=== PATIENT | male | born 1940 | race Caucasian/White ===

== ENCOUNTER 2019-05-11 13:22 | Inpatient (IN) ==
[2019-05-11] MEDS ORDERED: 0.9 % Sodium Chloride 1,000 ML IVC ONE (13:32)
--- NOTE | 2019-05-11 13:36 | Emergency Department Note ---
Disposition Clinical Impression: Syncope and collapse Disposition: Admitted As Inpatient Condition: Good [facility] Care Provider[facility] - Forms: ED Satisfaction Letter Time of Disposition: 14:44 General Adult HPI - General Chief complaint: ED Syncope Stated complaint: weakness Time Seen by Provider: 05/11/19 13:25 Source: patient, EMS Mode of arrival: EMS Limitations: no limitations Nursing Notes Reviewed: Yes Vital Signs Reviewed: Yes - History of Present Illness HPI Narrative: Patient is a 79-year-old male who is presenting via EMS following a syncopal episode. Patient with known history of diabetes, controlled with diet. Patient states that just prior to arrival, he was having his ears flushed at the OR hospital, during this time he became lightheaded dizzy and surprised, states this lasted only for a few seconds and regained baseline following this. Per EMS report, following a syncopal episode, patient had some slurring of speech, and facial droop, per EMS patient attended they arrived that all resolved and he did not have a specific side per [facility] report. Discussion with the patient he currently states that he is at baseline, does not remember having a facial droop, he does have slowed speech but denies any change in his speech at this time. Patient denies hitting his head, any recent trauma or head injury. He denies any chest pain, shortness of breath, abdominal pain, nausea or vomiting. He denies any urinary symptoms. Pain Scale: 0 - Related Data Home Medications Medication Instructions Recorded Confirmed Aspirin [Lo-Dose Aspirin EC] 81 mg PO DAILY 03/13/19 03/27/19 Atenolol [Tenormin] 50 mg PO DAILY 03/13/19 03/27/19 Carbidopa/Levodopa 2 each PO TID 03/13/19 03/27/19 [Carbidopa-Levodopa 25-100 Tab] Cetirizine HCl [24Hour Allergy] 10 mg PO DAILY 03/13/19 03/27/19 Loperamide [Imodium] 2 mg PO Q6H PRN 03/13/19 03/27/19 Mirabegron [Myrbetriq] 25 mg PO DAILY 03/13/19 03/27/19 Oxybutynin Chloride [Ditropan XL] 10 mg PO DAILY 03/13/19 03/27/19 Potassium Chloride [K-Tab ER] 8 meq PO BID 03/13/19 03/27/19 Simvastatin [Zocor] 10 mg PO DAILY 03/13/19 03/27/19 Tamsulosin [Flomax] 0.4 mg PO DAILY 03/13/19 03/27/19 hydroCHLOROthiazide 12.5 mg PO DAILY 03/13/19 03/27/19 [Hydrochlorothiazide] Allergies Allergy/AdvReac Type Severity Reaction Status Date / Time No Known Allergies Allergy Verified 03/13/19 07:23 All systems ED: reviewed and negative except as stated. Review of Systems: As Per HPI Constitutional: Denies: fever, chills ENT ED: Denies: congestion Cardiovascular: Denies: chest pain, palpitations, edema Respiratory: Denies: cough Gastrointestinal: Denies: abdominal pain, nausea, vomiting Genitourinary: Denies: dysuria Integumentary: Denies: rash Neurological: Reports: weakness. Denies: headache, numbness, paresthesias, confusion Endocrine: Denies: fatigue Past Medical History - Past Medical History Medical history: Reports: dementia, diabetes, hyperlipidemia, hypertension Surgical history: Reports: cholecystectomy, herniorrhaphy Psychiatric history: Reports: no psych history - Social History Smoking Status: Never smoker Smokeless Tobacco Status: No Alcohol use: Reports: none Drug use: Reports: none Physical Exam - General Limitations: no limitations General appearance: alert, in no apparent distress - Head Head exam: atraumatic, normocephalic, normal inspection - Eye Eye exam: Present: normal appearance, PERRL, EOMI - ENT ENT exam: normal exam, normal oropharynx, mucous membranes moist - Neck Neck exam: Present: normal inspection, full ROM, trachea midline - Chest Chest inspection: Present: normal inspection, symmetric chest wall rise - Respiratory Respiratory exam: Present: normal lung sounds bilaterally - Cardiovascular Cardiovascular exam: Present: regular rate, normal rhythm, normal heart sounds - Abdominal Exam Abdominal exam: Present: soft, Non-Tender. Absent: tenderness, distention, guarding, rebound, rigidity - Extremities Exam Extremities exam: Present: normal inspection, full ROM. Absent: tenderness, pedal edema - Expanded Lower Extremity Exam Neurovascular/Tendon exam: Absent: motor deficit, sensory deficit, tendon deficit - Back Exam Back exam: Present: normal inspection, full ROM. Absent: tenderness - Neurological Exam Neurological exam: Present: alert, oriented X3 - Expanded Neurological Exam Patient oriented to: Present: person, place, time Speech: Present: fluid speech Cranial nerves: EOM function (II, III, IV, ): Normal, facial sensation (V): Normal, facial palsy (VII): Normal, spinal accessory function (XI): Normal, tongue deviation (XII): Normal Cerebellar function: finger to nose: Normal Motor strength - LUE: 5/5 Motor strength - RUE: 5/5 Motor strength - LLE: 5/5 Motor strength - RLE: 5/5 Upper motor neuron exam: gosia neglect: Absent bilaterally, pronator drift: Absent bilaterally Sensory exam upper extremity: light touch: Normal Sensory exam lower extremity: light touch: Normal Coma Scale Eye Opening: Spontaneous Coma Scale Motor Response: Obeys Commands Coma Scale Verbal Response: Oriented Coma Scale Total: 15 - Psychiatric Psychiatric exam: Present: normal affect, normal mood - Skin Skin exam: Present: warm Course Vital Signs Temperature 97.6 F 05/11/19 13:28 Pulse Rate 76 05/11/19 13:28 Respiratory Rate 16 05/11/19 13:28 Blood Pressure 152/71 05/11/19 13:28 O2 Sat by Pulse Oximetry 98 05/11/19 13:28 Temperature 97.6 F 05/11/19 13:28 Pulse Rate 76 05/11/19 13:28 Respiratory Rate 16 05/11/19 13:28 Blood Pressure 152/71 05/11/19 13:28 O2 Sat by Pulse Oximetry 98 05/11/19 13:28 Oxygen Delivery Oxygen Delivery Room Air Medical Decision Making - MDM Narrative Medical decision making narrative: Patient is a 79-year-old male who is presenting with syncope. Patient was at the OR, had his ears flushed, with syncope. Following syncope there was neurological changes. Upon EMSs were arrival, he was NIH of 0. Glucose on arrival here is in the 100s. On arrival to our ER, patient is alert and oriented 3, no acute distress, GCS of 15, NIH of 0. He does have slowed speech but does not appear to be slurred. No acute neurological or vascular abnormality's at this time. Given concern for possible TIA versus CVA, versus cardiac/ pulmonary etiology. CBC, BMP, troponin and EKG are performed and show no acute abdomen amount he. CT of the head was performed as well as chest x-ray showing no acute intracranial or intra-cardio or pulmonary changes. Event that the patient did have a syncopal event with concerning neurological changes, although resolved at this time, patient will be admitted for further observation and further evaluation. On reevaluation at 1430, patient remains in NIH of 0 with no further neurological changes. Patient again feels though he remained baseline. - Medical Records Medical records reviewed: Yes I reviewed the patient's medical records. - Lab Data Lab results reviewed: Yes I reviewed the patient's lab results. Result diagrams: 05/11/19 13:45 05/11/19 13:45 Lab Results 05/11/19 05/11/19 05/11/19 Range/Units 13:45 13:45 13:45 WBC 6.8 (4.3-11.1) K/mcL RBC 4.55 (4.19-5.50) M/mcL Hgb 14.3 (12.9-16.9) g/dL Hct 42.7 (37.5-50.1) % MCV 93.8 (83.0-100.0) fL MCH 31.4 (28.0-33.3) pg MCHC 33.5 (31.6-35.5) g/dL RDW 13.5 (11.5-14.5) % Plt Count 205 (140-400) K/mcL MPV 11.3 (9.4-12.4) fL Immature Gran % 0.1 (0-4) % Seg Neutrophils % 68.9 % Lymphocytes % 18.9 % Monocytes % 10.8 % Eosinophils % 1.0 % Basophils % 0.3 % Neutrophils # 4.7 (1.6-8.9) K/mcL Lymphocytes # 1.3 (0.6-4.6) K/mcL Monocytes # 0.7 (0.0-1.3) K/mcL Eosinophils # 0.1 (0.0-0.6) K/mcL Basophils # 0.0 (0.0-0.2) K/mcL PT 12.6 H (9.4-12.1) Seconds INR 1.1 APTT 30.9 (26.0-36.0) Seconds Sodium 143 (136-145) mEq/L Potassium 3.9 (3.5-5.1) mEq/L Chloride 109 H (98-107) mEq/L Carbon Dioxide 27 (23-29) mEq/L BUN 19 (8-23) mg/dL Creatinine 0.92 (0.70-1.30) mg/dL Est GFR ( Amer) > 60 (> 60) Est GFR (Non-Af Amer) > 60 (> 60) BUN/Creatinine Ratio 21 (6-26) Glucose 105 (70-105) mg/dL Calculated Osmolality 299 (280-300) Calcium 9.2 (8.6-10.3) mg/dL Total Bilirubin 0.5 (0.3-1.0) mg/dL Direct Bilirubin 0.1 (0.0-0.2) mg/dL Indirect Bilirubin 0.4 (0.0-1.2) mg/dL AST 17 (13-39) Units/L ALT 24 (7-52) Units/L Alkaline Phosphatase 80 (34-104) Units/L Troponin I < 0.03 (< 0.04) ng/mL Serum Total Protein 6.9 (6.4-8.9) g/dL Albumin 4.0 (3.5-5.7) g/dL Globulin 2.9 (2.4-3.5) g/dL Albumin/Globulin Ratio 1.4 (1.1-2.2) TSH (0.340-5.600) mcIU/mL 05/11/19 Range/Units 13:45 WBC (4.3-11.1) K/mcL RBC (4.19-5.50) M/mcL Hgb (12.9-16.9) g/dL Hct (37.5-50.1) % MCV (83.0-100.0) fL MCH (28.0-33.3) pg MCHC (31.6-35.5) g/dL RDW (11.5-14.5) % Plt Count (140-400) K/mcL MPV (9.4-12.4) fL Immature Gran % (0-4) % Seg Neutrophils % % Lymphocytes % % Monocytes % % Eosinophils % % Basophils % % Neutrophils # (1.6-8.9) K/mcL Lymphocytes # (0.6-4.6) K/mcL Monocytes # (0.0-1.3) K/mcL Eosinophils # (0.0-0.6) K/mcL Basophils # (0.0-0.2) K/mcL PT (9.4-12.1) Seconds INR APTT (26.0-36.0) Seconds Sodium (136-145) mEq/L Potassium (3.5-5.1) mEq/L Chloride (98-107) mEq/L Carbon Dioxide (23-29) mEq/L BUN (8-23) mg/dL Creatinine (0.70-1.30) mg/dL Est GFR ( Amer) (> 60) Est GFR (Non-Af Amer) (> 60) BUN/Creatinine Ratio (6-26) Glucose (70-105) mg/dL Calculated Osmolality (280-300) Calcium (8.6-10.3) mg/dL Total Bilirubin (0.3-1.0) mg/dL Direct Bilirubin (0.0-0.2) mg/dL Indirect Bilirubin (0.0-1.2) mg/dL AST (13-39) Units/L ALT (7-52) Units/L Alkaline Phosphatase (34-104) Units/L Troponin I (< 0.04) ng/mL Serum Total Protein (6.4-8.9) g/dL Albumin (3.5-5.7) g/dL Globulin (2.4-3.5) g/dL Albumin/Globulin Ratio (1.1-2.2) TSH 3.482 (0.340-5.600) mcIU/mL - Radiology Data Radiology results reviewed: Yes I reviewed the patient's radiology results. Chest X-Ray 05/11/19 13:34 IMPRESSION: No acute cardiopulmonary disease D/ / Surendra Wu MD / Surendra Wu MD Interpreting Provider: Surendra Wu MD Head CT 05/11/19 13:35 IMPRESSION: Stable appearance of the brain with no acute intracranial abnormality. D/ / Ra Mckeon MD / Ra Mckeon MD Interpreting Provider: Ra Mckeon MD - EKG Data EKG #1 EKG attestation: Yes I reviewed and interpreted this EKG. EKG results narrative: EKG performed at ventricular rate of 82, regular rhythm, normal axis, no segment elevation, depression, no WPW, Brugada, no epsilon wave, no QT prolongation. NIH Stroke Scale - Level of Consciousness LOC: Alert - LOC Questions LOC Questions: Answers both correctly - LOC Commands LOC Commands: Performs both correctly - Best Gaze Best Gaze: Normal - Visual Visual: No visual loss - Facial Palsy Facial Palsy: Normal - Motor Arms Motor Arm-Left: No drift for 10 seconds Motor Arm-Right: No drift for 10 seconds - Motor Legs Motor Leg-Left: No drift for 5 seconds Motor Leg-Right: No drift for 5 seconds - Limb Ataxia Limb Ataxia: Absent of affected limb too weak to perform exam - Sensory Sensory: Normal - Best Language Best Language: No aphasia - Dysarthria Dysarthria: Normal - Extinction and Inattention Extinction and Inattention: Normal - NIHSS Total Score NIHSS Total Score: 0
--- NOTE | 2019-05-11 13:51 | Emergency Department Note ---
Disposition Clinical Impression: Syncope and collapse Disposition: Admitted As Inpatient Forms: ED Satisfaction Letter Time of Disposition: 13:51 General Adult HPI - General Chief complaint: ED Syncope Stated complaint: weakness Time Seen by Provider: 05/11/19 13:25 Source: patient, EMS Limitations: no limitations Nursing Notes Reviewed: Yes Vital Signs Reviewed: Yes - History of Present Illness HPI Narrative: ED attending attestation note: I examined this patient and my medical decision-making was reviewed with the emergency medicine resident SERINA MONTANO. I agree with the documented findings, disposition and treatment plan as described except to the extent set forth below. For any procedures performed I was present for the critical portions, and for any EKGs performed and reviewed I have looked over the EKG and interpretations and discussed with provider Briefly: 79-year-old [facility] for syncope and history of facial droop. Patient is getting his ears irrigated and then he had a syncopal episode they noticed facial droop patient is NIH of 0 upon arrival at [facility] emergency department is awake and alert is no weakness. Patient will get syncope workup and a TPA workup will get a head CT screening labs EKG and chest x-ray admission anticipated. Disposition pending Pain Scale: 0 - Related Data Home Medications Medication Instructions Recorded Confirmed Aspirin [Lo-Dose Aspirin EC] 81 mg PO DAILY 03/13/19 03/27/19 Atenolol [Tenormin] 50 mg PO DAILY 03/13/19 03/27/19 Carbidopa/Levodopa 2 each PO TID 03/13/19 03/27/19 [Carbidopa-Levodopa 25-100 Tab] Cetirizine HCl [24Hour Allergy] 10 mg PO DAILY 03/13/19 03/27/19 Loperamide [Imodium] 2 mg PO Q6H PRN 03/13/19 03/27/19 Mirabegron [Myrbetriq] 25 mg PO DAILY 03/13/19 03/27/19 Oxybutynin Chloride [Ditropan XL] 10 mg PO DAILY 03/13/19 03/27/19 Potassium Chloride [K-Tab ER] 8 meq PO BID 03/13/19 03/27/19 Simvastatin [Zocor] 10 mg PO DAILY 03/13/19 03/27/19 Tamsulosin [Flomax] 0.4 mg PO DAILY 03/13/19 03/27/19 hydroCHLOROthiazide 12.5 mg PO DAILY 03/13/19 03/27/19 [Hydrochlorothiazide] Allergies Allergy/AdvReac Type Severity Reaction Status Date / Time No Known Allergies Allergy Verified 03/13/19 07:23 Past Medical History - Past Medical History Medical history: Reports: dementia, diabetes, hyperlipidemia, hypertension Surgical history: Reports: cholecystectomy, herniorrhaphy Psychiatric history: Reports: no psych history - Social History Smoking Status: Never smoker Smokeless Tobacco Status: No Alcohol use: Reports: none Drug use: Reports: none Physical Exam - General Limitations: no limitations General appearance: alert, in no apparent distress Course Vital Signs Temperature 97.6 F 05/11/19 13:28 Pulse Rate 76 05/11/19 13:28 Respiratory Rate 16 05/11/19 13:28 Blood Pressure 152/71 05/11/19 13:28 O2 Sat by Pulse Oximetry 98 05/11/19 13:28 Temperature 97.6 F 05/11/19 13:28 Pulse Rate 76 05/11/19 13:28 Respiratory Rate 16 05/11/19 13:28 Blood Pressure 152/71 05/11/19 13:28 O2 Sat by Pulse Oximetry 98 05/11/19 13:28 Oxygen Delivery Oxygen Delivery Room Air
[2019-05-11 14:08] LABS: Basophils % 0.3 %; Eosinophils # 0.1 K/mcL (0.0-0.6); Hematocrit 42.7 % (37.5-50.1); Hemoglobin 14.3 g/dL (12.9-16.9); Immature Granulocytes % 0.1 % (0-4); Lymphocytes # 1.3 K/mcL (0.6-4.6); Lymphocytes % 18.9 %; Mean Corpuscular HGB Conc 33.5 g/dL (31.6-35.5); Mean Corpuscular Hemoglobin 31.4 pg (28.0-33.3); Mean Corpuscular Volume 93.8 fL (83.0-100.0); Mean Platelet Volume 11.3 fL (9.4-12.4); Monocytes # 0.7 K/mcL (0.0-1.3); Monocytes % 10.8 %; Neutrophils # 4.7 K/mcL (1.6-8.9); Platelet Count 205 K/mcL (140-400); Red Blood Count 4.55 M/mcL (4.19-5.50); Red Cell Distribution Width 13.5 % (11.5-14.5); Segmented Neutrophils % 68.9 %; White Blood Count 6.8 K/mcL (4.3-11.1)
[2019-05-11 14:14] LABS: INR 1.1; Prothrombin Time 12.6 Seconds (9.4-12.1)
[2019-05-11 14:17] LABS: Activated Partial Thrombo Time 30.9 Seconds (26.0-36.0)
[2019-05-11 14:26] LABS: Alanine Aminotransferase 24 Units/L (7-52); Albumin/Globulin Ratio 1.4 (1.1-2.2); Alkaline Phosphatase 80 Units/L (34-104); Aspartate Amino Transferase 17 Units/L (13-39); BUN/Creatinine Ratio 21 (6-26); Bilirubin,Direct 0.1 mg/dL (0.0-0.2); Bilirubin,Indirect 0.4 mg/dL (0.0-1.2); Bilirubin,Total 0.5 mg/dL (0.3-1.0); Blood Urea Nitrogen 19 mg/dL (8-23); Calcium 9.2 mg/dL (8.6-10.3); Carbon Dioxide 27 mEq/L (23-29); Chloride 109 mEq/L (98-107); Globulin 2.9 g/dL (2.4-3.5); Glucose 105 mg/dL (70-105); Osmolality,Calculated 299 (280-300); Potassium 3.9 mEq/L (3.5-5.1); Sodium 143 mEq/L (136-145); Total Protein 6.9 g/dL (6.4-8.9); Troponin I < 0.03 ng/mL (< 0.04); eGFR For African Americans > 60 (> 60); eGFR For Non-African Americans > 60 (> 60)
[2019-05-11 15:16] LABS: Bilirubin,Urine Negative (Negative); Blood,Urine Negative (Negative); Clarity,Urine Clear (Clear); Color,Urine Yellow (Yellow); Glucose,Urine (UA) Normal (Normal); Ketones,Urine Trace mg/dL (Negative); Leukocyte Esterase,Urine Negative (Negative); Nitrite,Urine Negative (Negative); PH,Urine 5.5 pH Units (5.0-8.0); Protein,Urine Negative (Neg-Trace); Specific Gravity,Urine 1.028 (1.010-1.025); Urobilinogen,Urine Normal (Normal)
[2019-05-11] MEDS ORDERED: Naloxone 0.4 MG/ML INJ IVP PRN (15:20)
[2019-05-11] MEDS ORDERED: Ondansetron 4 MG/2 ML VIAL IVP PRN (15:20)
--- NOTE | 2019-05-11 15:35 | Internal Med History&Physical ---
Date of Encounter: 05/11/19 Time of Encounter: 15:00 Internal Medicine - H&P: HPI Chief complaint: syncope ?facial droop Admitted From: Emergency Dept History of present illness: Mr. Cardenas is a 79 year old male with history of hypertension, HLD, prediabetes, Parkinson's disease, BPH, who presented to the ED from [place] after an episode of syncope. He was at the [facility] around 1130am today to have his ear wax removed when he had sudden onset of LOC. Lasted a few seconds and he quickly regained his consciousness without any intervention. No HI or fall. However, after the event, the staff noted that he had facial droop (unsure which side) an d ?slurring of speech hence decided to send the pt to the ED for further evaluation. When asked specifically about the event, patient has no recollection after the ear wax irrigation. Denies any prodromal symptoms including chest pain, palpitation, lightheadedness, or blurring of vision. No seizure-like activities noted. No loss of bowel/bladder control or tongue biting. No similar episodes in the past. Upon the arrival at the ED, his symptoms resolved with NIH of 0 hence stroke alert was canceled. Otherwise, he was afebrile and hemodynamically stable. Workup including CBC, CMP, troponin, chest x-ray, urinalysis, and CT head were all unremarkable. EKG showed normal sinus rhythm without ST-T changes concerning for ischemia. He will be admitted for further management. Past Med Surg Social Fam HX - Past Medical History Medical history: dementia, hyperlipidemia, hypertension Additional medical history: pre-DM (A1c 6.1 02/2019). hypokalemia. parkinsons. dementia Psychiatric history: no psych history - Past Surgical History Surgical History: cholecystectomy, herniorrhaphy - Social History Smoking Status: Never smoker Smokeless Tobacco Status: No Alcohol use: none Drug use: none - Additional Family History Additional family history: No family history of CAD or CVA Internal Medicine - H&P: Meds Aspirin [Lo-Dose Aspirin EC] 162 mg PO DAILY 03/13/19 [History] Atenolol [Tenormin] 50 mg PO DAILY 03/13/19 [History] Carbidopa/Levodopa [Carbidopa-Levodopa 25-100 Tab] 2 each PO TID 03/13/19 [History] Loperamide [Imodium] 2 mg PO Q6H PRN 03/13/19 [History] Mirabegron [Myrbetriq] 25 mg PO DAILY 03/13/19 [History] Oxybutynin Chloride [Ditropan XL] 10 mg PO DAILY 03/13/19 [History] Tamsulosin [Flomax] 0.4 mg PO HS 03/13/19 [History] hydroCHLOROthiazide [Hydrochlorothiazide] 12.5 mg PO DAILY 03/13/19 [History] Calcium Carbonate [Calcium] 600 mg PO BID 05/11/19 [History] Cholecalciferol (D-3) [Vitamin D] 2,000 unit PO DAILY 05/11/19 [History] Potassium Chloride [Klor-Con 10] 10 meq PO BID 05/11/19 [History] Simvastatin [Zocor] 20 mg PO HS 05/11/19 [History] Allergy/AdvReac Type Severity Reaction Status Date / Time No Known Allergies Allergy Verified 03/13/19 07:23 All Systems PM: A 10-system review of systems was performed and is negative for pertinent find ings except as documented above in the HPI. - Constitutional Vitals: Temp Pulse Resp BP Pulse Ox 97.6 F 76 16 152/71 98 05/11/19 13:28 05/11/19 13:28 05/11/19 13:28 05/11/19 13:28 05/11/19 13:28 Exam: General: Alert and oriented, not in acute distress. HEENT:EOMI, pupils equal, round and reactive. Cardiovascular:Normal S1 & S2, No JVD. Pulse regular. Lungs: clear to auscultation, no wheezes/rales Abdomen:Soft, non-tender, no rigidity. Extremities:No deformity or swelling Neurological: Although speech is slow (?from Parkinson's disease), no obvious slurring of speech noted. CN II-XII intact, unable to appreciate facial droop at this point. Power and sensation fully intact in all 4 limbs. No cerebellar signs, pronator drift -ve, Babinski downgoing bilaterally Skin:Normal color, no rash, no lesions. Pulses:Carotid and radial pulses normal +2. Rest of the physical exam is non contributory Internal Med - H&P Results - Labs CBC & Chem 7: 05/11/19 13:45 05/11/19 13:45 Labs: Short CBC 05/11/19 Range/Units 13:45 WBC 6.8 (4.3-11.1) K/mcL Hgb 14.3 (12.9-16.9) g/dL Hct 42.7 (37.5-50.1) % Plt Count 205 (140-400) K/mcL Neutrophils # 4.7 (1.6-8.9) K/mcL BMP 05/11/19 13:45 Sodium 143 Potassium 3.9 Chloride 109 H Carbon Dioxide 27 BUN 19 Creatinine 0.92 Glucose 105 Calcium 9.2 Cardiac Enzymes 05/11/19 Range/Units 13:45 Troponin I < 0.03 (< 0.04) ng/mL Liver Function 05/11/19 Range/Units 13:45 Total Bilirubin 0.5 (0.3-1.0) mg/dL Direct Bilirubin 0.1 (0.0-0.2) mg/dL AST 17 (13-39) Units/L ALT 24 (7-52) Units/L Alkaline Phosphatase 80 (34-104) Units/L Albumin 4.0 (3.5-5.7) g/dL Urine 05/11/19 Range/Units 14:52 Urine Color Yellow (Yellow) Urine Clarity Clear (Clear) Urine pH 5.5 (5.0-8.0) pH Units Ur Specific [place] 1.028 H (1.010-1.025) Urine Protein Negative (Neg-Trace) mg/dL Urine Glucose (UA) Normal (Normal) mg/dL - Impressions ITS Impressions Chest X-Ray 05/11/19 13:34 IMPRESSION: No acute cardiopulmonary disease. D/ / 05/11/2019 14:50:29 Surendra uW MD / madelyn Interpreting Provider: Surendra Wu MD Head CT 05/11/19 13:35 IMPRESSION: Stable appearance of the brain with no acute intracranial abnormality. D/ / Ra Mckeon MD / Ra Mckeon MD Interpreting Provider: Ra Mckeon MD - Assessment and Plan (1) Syncope Current Visit: Yes Status: Acute Assessment and plan: Presented with an episode of syncope followed by questionable neurological deficits which are no longer present; no slurring of speech or facial droop appreciated at this time ?TIA. CT head -ve, EKG NSR will proceed with MRI head, echocardiogram, carotid doppler NIHSS per protocol, keep on telemetry Check A1c and lipid panel tomorrow continue ASA, statin PT/OT Qualifiers: Syncope type: unspecified Qualified Code(s): R55 - Syncope and collapse (2) TIA (transient ischemic attack) Current Visit: Yes Status: Suspected Assessment and plan: as above hold off on anti-HTN to allow for permissive hypertension (3) HTN (hypertension) Current Visit: Yes Status: Chronic Assessment and plan: hold off on meds as above Qualifiers: Hypertension type: essential hypertension Qualified Code(s): I10 - Essential (primary) hypertension (4) HLD (hyperlipidemia) Current Visit: Yes Status: Chronic Assessment and plan: resume home meds Qualifiers: Hyperlipidemia type: unspecified Qualified Code(s): E78.5 - Hyperlipidemia, unspecified (5) Parkinson disease Current Visit: Yes Status: Chronic Assessment and plan: Resume Sinemet (6) DVT prophylaxis Current Visit: Yes Status: Acute Assessment and plan: Subcutaneous heparin - Time Spent With Patient Total time spent is greater than 50% in coordination of care (as documented) at patient's floor/unit and/or counseling patient: 25 - 35 minutes
[2019-05-11] MEDS: *HR* Heparin 5,000 UNIT/ML VIAL SQ SCH (17:37)
[2019-05-11] MEDS: Carbidopa/Levodopa 25/100 TABLET PO SCH (20:14)
[2019-05-12] MEDS: *HR* Heparin 5,000 UNIT/ML VIAL SQ SCH (05:32)
[2019-05-12 06:14] LABS: Basophils % 0.4 %; Eosinophils # 0.1 K/mcL (0.0-0.6); Eosinophils % 1.4 %; Hematocrit 40.6 % (37.5-50.1); Hemoglobin 13.4 g/dL (12.9-16.9); Immature Granulocytes % 0.4 % (0-4); Lymphocytes # 1.1 K/mcL (0.6-4.6); Lymphocytes % 20.1 %; Mean Corpuscular Hemoglobin 31.3 pg (28.0-33.3); Mean Corpuscular Volume 94.9 fL (83.0-100.0); Mean Platelet Volume 11.7 fL (9.4-12.4); Monocytes # 0.5 K/mcL (0.0-1.3); Monocytes % 9.5 %; Neutrophils # 3.9 K/mcL (1.6-8.9); Platelet Count 173 K/mcL (140-400); Red Blood Count 4.28 M/mcL (4.19-5.50); Red Cell Distribution Width 13.5 % (11.5-14.5); Segmented Neutrophils % 68.2 %; White Blood Count 5.7 K/mcL (4.3-11.1)
[2019-05-12 06:43] LABS: Estimated Average Glucose 131 mg/dl
[2019-05-12 06:48] LABS: BUN/Creatinine Ratio 18 (6-26); Blood Urea Nitrogen 14 mg/dL (8-23); Calcium 8.7 mg/dL (8.6-10.3); Carbon Dioxide 24 mEq/L (23-29); Chloride 109 mEq/L (98-107); Cholesterol 107 mg/dL (< 200); Glucose 127 mg/dL (70-105); HDL Cholesterol 27 mg/dL (40-59); LDL Cholesterol,Calculated 59 mg/dL (0-99); Osmolality,Calculated 294 (280-300); Potassium 3.5 mEq/L (3.5-5.1); Sodium 141 mEq/L (136-145); Triglycerides 105 mg/dL (< 150); eGFR For African Americans > 60 (> 60); eGFR For Non-African Americans > 60 (> 60)
[2019-05-12 07:16] LABS: Magnesium 1.9 mg/dL (1.6-2.6)
[2019-05-12 07:19] VITALS: BP 132/78
[2019-05-12] MEDS ORDERED: Aspirin Enteric Coated 81 MG Tablet PO SCH (09:00)
[2019-05-12] MEDS ORDERED: Cholecalciferol (D-3) 1,000 UNIT (25MCG) TABLET PO SCH (09:00)
[2019-05-12] MEDS ORDERED: NON-FORMULARY MEDICATION 1 EACH EACH (Hydrochlorothiazide [Hydrochlorothiazide] 12.5 MG) PO SCH (09:00)
[2019-05-12] MEDS: Carbidopa/Levodopa 25/100 TABLET PO SCH (09:09)
--- NOTE | 2019-05-12 10:28 | Discharge Summary ---
- NOTES TO OUTPATIENT PROVIDER Notes to Outpatient Provider: Follow-up with PCP as outpatient Date of Encounter: 05/12/19 Time of Encounter: 07:30 - Discharge Diagnosis (1) Syncope Priority: Primary Status: Acute Qualifiers: Syncope type: unspecified Qualified Code(s): R55 - Syncope and collapse (2) TIA (transient ischemic attack) Priority: Secondary Status: Suspected (3) HTN (hypertension) Priority: Secondary Status: Chronic Qualifiers: Hypertension type: essential hypertension Qualified Code(s): I10 - Essential (primary) hypertension (4) HLD (hyperlipidemia) Priority: Secondary Status: Chronic Qualifiers: Hyperlipidemia type: unspecified Qualified Code(s): E78.5 - Hyperlipidemia, unspecified (5) Parkinson disease Priority: Secondary Status: Chronic (6) DVT prophylaxis Priority: Secondary Status: Acute Hospital course: Mr. Cardenas is a 79 year old male with history of hypertension, HLD, prediabetes, Parkinson's disease, BPH, who presented to the ED from [place] after an episode of syncope while having his ear wax removed. Lasted a few seconds and he quickly regained his consciousness without any intervention. There was however a concern for possible facial droop (unsure which side) and slurring of speech hence he was admitted for further evaluation. NIH on arrival to our ED was 0 however and stroke alert was not activated because of that reason. No further episodes observed overnight. MRI -ve for CVA. Likely vasovagal syncope rather than neuro/cardiogenic, to follow up with PCP as outpatient. Discharge discussed with: patient, nurse - Time Spent with Patient Total time spent providing and/or coordinating discharge services:32 mins - Discharge Medications Prescriptions: Continued Aspirin [Lo-Dose Aspirin EC] 162 mg PO DAILY Atenolol [Tenormin] 50 mg PO DAILY Carbidopa/Levodopa [Carbidopa-Levodopa 25-100 Tab] 2 each PO TID hydroCHLOROthiazide [Hydrochlorothiazide] 12.5 mg PO DAILY Loperamide [Imodium] 2 mg PO Q6H PRN PRN Reason: Diarrhea Mirabegron [Myrbetriq] 25 mg PO DAILY Oxybutynin Chloride [Ditropan XL] 10 mg PO DAILY Tamsulosin [Flomax] 0.4 mg PO HS Calcium Carbonate [Calcium] 600 mg PO BID Cholecalciferol (D-3) [Vitamin D] 2,000 unit PO DAILY Potassium Chloride [Klor-Con 10] 10 meq PO BID Simvastatin [Zocor] 20 mg PO HS Home Medications: Aspirin [Lo-Dose Aspirin EC] 162 mg PO DAILY 03/13/19 [History] Atenolol [Tenormin] 50 mg PO DAILY 03/13/19 [History] Carbidopa/Levodopa [Carbidopa-Levodopa 25-100 Tab] 2 each PO TID 03/13/19 [History] Loperamide [Imodium] 2 mg PO Q6H PRN 03/13/19 [History] Mirabegron [Myrbetriq] 25 mg PO DAILY 03/13/19 [History] Oxybutynin Chloride [Ditropan XL] 10 mg PO DAILY 03/13/19 [History] Tamsulosin [Flomax] 0.4 mg PO HS 03/13/19 [History] hydroCHLOROthiazide [Hydrochlorothiazide] 12.5 mg PO DAILY 03/13/19 [History] Calcium Carbonate [Calcium] 600 mg PO BID 05/11/19 [History] Cholecalciferol (D-3) [Vitamin D] 2,000 unit PO DAILY 05/11/19 [History] Potassium Chloride [Klor-Con 10] 10 meq PO BID 05/11/19 [History] Simvastatin [Zocor] 20 mg PO HS 05/11/19 [History] Allergies/Adverse Reactions: Allergy/AdvReac Type Severity Reaction Status Date / Time No Known Allergies Allergy Verified 03/13/19 07:23 Date of admission: 05/11/19 15:28 Primary care physician: PCP [place] Consults: 05/11/19 15:21 Consult to Occupational Therapy [CONS] Routine Comment: Evaluate, develop and implement POC Reason for Consult: TIA/CVA Does patient have active BEDREST order?: No Is patient medically & hemodynamically stable?: Yes Consult to Physical Therapy [CONS] Routine Comment: Evaluate, develop and implement POC Reason for Consult: TIA/CVA Does patient have active BEDREST order?: No Is patient medically & hemodynamically stable?: Yes - Constitutional Vitals: Temp Pulse Resp BP Pulse Ox 98.0 F 73 15 132/78 96 05/12/19 07:14 05/12/19 07:14 05/12/19 07:14 05/12/19 07:14 05/12/19 07:14 Exam: General: Alert and oriented, not in acute distress. HEENT:EOMI, pupils equal, round and reactive. Cardiovascular:Normal S1 & S2, No JVD. Pulse regular. Lungs: clear to auscultation, no wheezes/rales Abdomen:Soft, non-tender, no rigidity. Extremities:No deformity or swelling Neurological: CN II-XII intact, unable to appreciate facial droop at this point. Power and sensation fully intact in all 4 limbs. No cerebellar signs, pronator drift -ve, Babinski downgoing bilaterally - Patient Status Disposition: Home, Self-Care Condition: Good Functional capacity at discharge: independent ambulation Overall status at discharge: patient is progressing back to baseline - Discharge Instructions Instructions: Syncope (DC), Chronic Hypertension ([facility]) Follow [facility]: [facility] [Primary Care Provider] - - Diet and Activity Activity: resume usual activities as tolerated Diet: regular diet
== END 2019-05-12 15:21 | disposition home or self-care (01) | DRG 312 ==
LOC: 3BNU 13:22 → EMEROOARM 13:22 → SUATTDRO 15:13 → 3BNU 16:05
PROVIDERS: ADMIT Internal Medicine; ATTEND Internal Medicine

== ENCOUNTER 2020-08-27 09:23 | Observation (INO) ==
[2020-08-27] MEDS ORDERED: Aspirin 81 MG TAB.CHEW PO ONE (09:24)
[2020-08-27 09:55] LABS: Basophils % 0.3 %; Eosinophils # 0.1 K/mcL (0.0-0.6); Eosinophils % 0.8 %; Hematocrit 43.2 % (37.5-50.1); Hemoglobin 14.6 g/dL (12.9-16.9); Immature Granulocytes % 0.2 % (0-4); Lymphocytes # 1.8 K/mcL (0.6-4.6); Lymphocytes % 29.8 %; Mean Corpuscular HGB Conc 33.8 g/dL (31.6-35.5); Mean Corpuscular Hemoglobin 32.1 pg (28.0-33.3); Mean Corpuscular Volume 94.9 fL (83.0-100.0); Mean Platelet Volume 11.2 fL (9.4-12.4); Monocytes # 0.6 K/mcL (0.0-1.3); Neutrophils # 3.6 K/mcL (1.6-8.9); Platelet Count 189 K/mcL (140-400); Red Blood Count 4.55 M/mcL (4.19-5.50); Red Cell Distribution Width 13.5 % (11.5-14.5); Segmented Neutrophils % 58.9 %; White Blood Count 6.2 K/mcL (4.3-11.1)
[2020-08-27 10:14] LABS: BUN/Creatinine Ratio 18 (6-26); Blood Urea Nitrogen 14 mg/dL (8-23); Calcium 8.7 mg/dL (8.6-10.3); Carbon Dioxide 21 mEq/L (23-29); Chloride 107 mEq/L (98-107); Glucose 120 mg/dL (70-105); Osmolality,Calculated 286 (280-300); Sodium 137 mEq/L (136-145); Troponin I < 0.03 ng/mL (< 0.04); eGFR For African Americans > 60 (> 60); eGFR For Non-African Americans > 60 (> 60)
[2020-08-27] MEDS ORDERED: Naloxone 0.4 MG/ML INJ IVP PRN (12:29)
[2020-08-27] MEDS ORDERED: *HR* HYDROcodone/Acet 5/325 mg TABLET PO PRN (14:09)
[2020-08-27] MEDS ORDERED: QUEtiapine Fumarate 25 MG TABLET PO PRN (14:10)
[2020-08-27] MEDS ORDERED: Perflutren Lipid Microsphere 1.3 ML in 0.9 % Sodium Chloride 8.7 ML IVP PRN (14:19)
[2020-08-27 16:23] LABS: Estimated Average Glucose 128 mg/dl
[2020-08-28 03:02] LABS: Chol/HDL Ratio 3.2 (0-4.9)
[2020-08-28] MEDS ORDERED: (Mirabegron [Myrbetriq] 25 MG) PO SCH (09:15)
[2020-08-28] MEDS ORDERED: Aspirin Enteric Coated 81 MG Tablet PO SCH (09:15)
[2020-08-28] MEDS ORDERED: atenoloL 50 MG TABLET PO SCH (09:15)
[2020-08-28] MEDS ORDERED: hydroCHLOROthiazide 25 MG TABLET PO SCH (09:15)
[2020-08-28] MEDS: Carbidopa/Levodopa 25/100 TABLET PO SCH ×2 (09:31→15:57)
[2020-08-28 11:24] VITALS: BP 143/81
== END 2020-08-28 16:13 | disposition home health service (06) ==
LOC: EMEROOARM 09:23 → 3BNU 09:23 → SUATTDRO 12:16 → 3BNU 13:12
PROVIDERS: ADMIT Internal Medicine; ATTEND Internal Medicine